=== PATIENT | female | born 1950 | race Caucasian/White ===

== ENCOUNTER 2024-09-05 17:00 | Emergency (ER) | payer MEDICARE, BC, SELFPAY ==
[2024-09-05 17:01] VITALS: BMI 31.6
[2024-09-05 17:22] VITALS: BP 168/82; PULSE 82; RESP 18; TEMP 36.9; O2SAT 95
--- NOTE | 2024-09-05 17:39 | PD.EDANIML ---
ED Animal Bite RME/HPI General Chief Complaint: Animal Bite Stated Complaint: CAT BITE 3 DAYS AGO Time Seen by Provider: 09/05/24 17:22 Arrival date/time: 09/05/24 17:00 73-year-old female presents emergency department today send that she was bitten by her cat 3 days ago patient reports redness to her right hand right arm today. Patient ports no fever nausea or vomiting Limitations: no limitations Related Data Home Medications ?Medication ?Instructions ?Recorded ?Confirmed fluoxetine 40 mg capsule 40 mg PO HS 08/28/17 12/02/17 hydrocodone 10 mg-acetaminophen 1 tab PO Q6H 12/01/17 12/01/17 325 mg tablet ([place]elle) Previous Rx's ?Medication ?Instructions ?Recorded amoxicillin 875 mg-potassium 1 tab PO BID 7 days #14 tabs 09/05/24 clavulanate 125 mg tablet ibuprofen 600 mg tablet 600 mg PO Q6H #30 tabs 09/05/24 Allergies Allergy/AdvReac Type Severity Reaction Status Date / Time No Known Allergies Allergy Verified 09/05/24 17:03 Review of Systems Review of Systems Systems Reviewed: All systems reviewed, normal except as documented Constitutional Constitutional: Reports system reviewed and no additional complaints, except as documented, Denies fever(s) and Denies headache(s) Eyes Eyes: Reports system reviewed and no additional complaints, except as documented and Denies blurry vision ENT Ears, Nose, Mouth, and Throat: Reports system reviewed and no additional complaints, except as documented, Denies headache(s), Denies nasal congestion and Denies nasal discharge Cardiovascular Cardiovascular: Reports system reviewed and no additional complaints, except as documented, Denies chest pain and Denies dyspnea Respiratory Respiratory: Reports system reviewed and no additional complaints, except as documented, Denies chest congestion, Denies cough and Denies dyspnea Gastrointestinal Gastrointestinal: Reports system reviewed and no additional complaints, except as documented and Denies abdominal pain Integumentary/Breasts Skin/Breast: Reports system reviewed and no additional complaints, except as documented, Denies rash and Reports wounds (Cat bite right arm erythema) Neurologic Neurologic: Reports system reviewed and no additional complaints, except as documented, Reports as per HPI and Denies headache(s) Past Medical History Past Medical History NEUROLOGIC: Negative Neurological Disorders or Seizures CARDIAC: Negative Cardiac Disorders or Congestive Heart Failure RESPIRATORY: Negative Chronic Obstructive Pulmonary Disease (COPD) GASTROINTESTINAL: Positive Gastrointestinal Disorders and Gall Bladder Disease (LAP 2000) GENITOURINARY: Negative Genitourinary Disorders or Renal Disease REPRODUCTIVE: Positive Previous Pregnancies (X1) MUSCULOSKELETAL: Positive Musculoskeletal Disorders, Arthritis, Carpal Tunnel Syndrome (RIGHT) and Fractures (RIGHT ANKLE NO SURG) ENDOCRINE: Negative Endocrine Disorders, Diabetes Mellitus Type 1 or Diabetes Mellitus Type 2 HEMATOLOGIC: Negative Blood Disorders PSYCHO/SOCIAL: Positive Depression (TAKES MED) and Anxiety OTHER HISTORY: Positive Hospitalization (HOSP DUE TO GALL BLADDER FLARE UP (OVERNIGHT) 1999), Autoimmune Disease, Shingles, Chicken Pox and Measles; Negative Blood Transfusions, Blood Transfusion Reaction or Anesthesia Reactions Family History FAMILY HISTORY: Positive Family Psychiatric Problems (BROTHER,MOTHER), Family Respiratory Disorders (MOTHER), Family Cardiac Disorders (MOTHER), Family Gastrointestinal Problems (FATHER) and Family Surgery (MOTHER,FATHER,BROTHER) Surgical History SURGICAL: Positive Tonsillectomy Social History SMOKING STATUS: Never smoker ED Exam General Limitations: Present no limitations General appearance: Present alert and in no apparent distress Head Head exam: Present atraumatic Eye Eye exam: Present normal appearance, PERRL and EOMI ENT ENT exam: Present normal exam, normal oropharynx and mucous membranes moist Neck Neck exam: Present normal inspection, full ROM and trachea midline Chest Chest inspection: Present normal inspection and symmetric chest wall rise Respiratory Respiratory exam: Present normal lung sounds bilaterally Cardiovascular Cardiovascular exam: Present regular rate, normal rhythm and normal heart sounds Abdominal Exam Abdominal exam: Present soft and normal bowel sounds Extremities Exam Extremities exam: Present normal inspection and full ROM Back Exam Back exam: Present normal inspection and full ROM Neurological Exam Neurological exam: Present alert, oriented X3 and CN II-XII intact Psychiatric Psychiatric exam: Present normal affect and normal mood Skin Skin exam: Present warm, dry and other (Right arm redness, warmth, cat bite) Course Quality Measures none Orders Category Date Time Status Ibuprofen Tab [Motrin Tab] Med 09/05/24 17:34 Discontinued 600 mg PO X1 ONE Lidocaine 1% 20 ml [Xylocaine 1% 20 ML] Med 09/05/24 17:34 Discontinued 2.1 ml INFL X1 ONE Tet,Diphth,Pertuss(Acell)-Tdap [Boostrix Vacc] Med 09/05/24 17:34 Discontinued 0.5 ml IMI .ONCE ONE cefTRIAXone [Rocephin] Med 09/05/24 17:34 Discontinued 1,000 mg IM X1 ONE Vital Signs Vital signs: Vital Signs Temperature 98.5 F 09/05/24 17:22 Pulse Rate 82 09/05/24 17:22 Respiratory Rate 18 09/05/24 17:22 Blood Pressure 168/82 H 09/05/24 17:22 Pulse Oximetry (%) 95 09/05/24 17:22 Oxygen Delivery Method Room Air 09/05/24 17:22 O2 saturation 95% room air within normal limits Animal Bite MDM Narrative MDM Narrative:: 73-year-old female presents emergency department today send that she was bitten by her cat 3 days ago patient reports redness to her right hand right arm today. Patient ports no fever nausea or vomiting On exam patient well-appearing patient does not appear toxic and no acute distress On exam patient has erythema right hand and right forearm I did give the patient the offer of lab work and possible admission Patient reports she would prefer to try a course of antibiotics and she will return in 24 hours for reevaluation Patient assures me she will return tomorrow for reevaluation Patient data External records reviewed:: [facility] previous records Clinical information provided by:: patient Social determinants that could affect healthcare access:: none Patient has the following chronic illnesses:: None How is presenting disease/condition affected by chronic disease/condition?: no chronic disease Evaluation data The following diagnostics were reviewed and interpreted by me:: other (specify) (N/A) Lab and/or radiology exams considered but not ordered:: Consider not ordered Interpretation Summary: N/A Medications / Prescriptions Medications or Prescriptions considered but not ordered:: Given Medication administrations:: Medication Administration History Discontinued Medications Ceftriaxone Sodium (Ceftriaxone Sod Inj 1,000 Mg Vial) 1,000 mg IM X1 ONE Stop: 09/05/24 17:35 Last Admin: 09/05/24 18:10 Dose: 1,000 mg Documented By: ROGER Diphtheria/Tetanus/Acell Pertussis (Diphth,Pertuss(Acell),Tet Vac 0.5 Ml Syr) 0.5 ml IMi .ONCE ONE Stop: 09/05/24 17:35 Last Admin: 09/05/24 18:11 Dose: 0.5 ml Documented By: ROGER Ibuprofen (Ibuprofen Tab 600 Mg Tablet) 600 mg PO X1 ONE Stop: 09/05/24 17:35 Last Admin: 09/05/24 18:10 Dose: 600 mg Documented By: ROGER Lidocaine HCl (Lidocaine Hcl 1% 20 Ml Vial) 2.1 ml INFL X1 ONE Stop: 09/05/24 17:35 Last Admin: 09/05/24 18:10 Dose: 2.1 ml Documented By: ROGER Given Consultations Consultation(s) initiated? (list below): No Diagnosis Differential diagnosis animal bite: bite by animal, cat bite and rabies contact Most likely diagnosis given after review of the tests above:: Cellulitis, cat bite Admission Indicated Admission indicated?: not indicated Admission Request Was there a request for admission?: No Disposition Plan Disposition Plan: Discharge Discharge Attestation Discharge Attestation: The patient and all family members were given an opportunity to ask questions and understood the discharge instructions. Discharge instructions specifically effects, indications for sooner follow up or return to the emergency department, and the expected course of current diagnosis. Patient condition: Stable Discharge Plan Plan Patient Disposition: HOME (Self Care) Disposition Comment: Stable Prescriptions/Referrals Prescriptions/Med Rec: New ibuprofen 600 mg tablet 600 mg PO Q6H Qty: 30 0RF amoxicillin-pot clavulanate 875-125 mg tablet 1 tab PO BID 7 Days Qty: 14 0RF No Action fluoxetine 40 mg capsule 40 mg PO HS Patient Comments: TAKE ONE CAPSULE BY MOUTH EVERY DAY hydrocodone-acetaminophen [P[place]elle] 10-325 mg Tablet 1 tab PO Q6H Problem List Clinical Impression: Cat bite of right hand Patient/Caregiver Discharge Instructions Education Materials: ED Cat Bite Additional Instructions: Please return in 24 hours for reevaluation for worsening symptoms return immediately Print Language: Kyrgyz Stand Alone Forms: Yari Award Info., Patient Portal Info Letter Vaccines Vaccines Given During Stay: TDaP PA/COIN ROLLING MACHINE OPERATOR Supervising Physician PA/COIN ROLLING MACHINE OPERATOR Supervising Physician: Dr Luo
[2024-09-05] MEDS: cefTRIAXone SOD INJ 1,000 MG VIAL 1000 MG IM (18:10)
[2024-09-05] MEDS: LIDOCAINE HCL 1% 20 ML VIAL 2.1 ML INFL (18:10)
[2024-09-05] MEDS: IBUPROFEN TAB 600 MG TABLET PO (18:10)
[2024-09-05] MEDS: DIPHTH,PERTUSS(ACELL),TET VAC 0.5 ML SYR IMi (18:11)
== END 2024-09-05 18:22 | disposition home or self-care (01) ==
LOC: SERX 18:38
PROVIDERS: Emergency Provider Emergency Medicine; PCP Family Medicine
DX: S61.451A Open bite of right hand, initial encounter (principal); Z23 Encounter for immunization; W55.01XA Bitten by cat, initial encounter
CPT/HCPCS: 90471; 90715; 96372; 99283; J0696; J3490; A9270

== ENCOUNTER 2025-02-11 12:30 | Emergency (ER) | payer MEDICARE, BC, SELFPAY ==
[2025-02-11 12:39] VITALS: BP 163/83; PULSE 87; RESP 19; TEMP 37.1; O2SAT 95; BMI 31.8
--- NOTE | 2025-02-11 12:55 | EDNOTE_ITS ---
ED Animal Bite RME/HPI General Chief Complaint: Animal Bite Stated Complaint: Cat bite right hand last night Time Seen by Provider: 02/11/25 12:47 Source: patient Arrival date/time: 02/11/25 12:30 This is a 74-year-old female who presents to the emergency department for evaluation of a cat bite to the right hand, which occurred approximately 1 day ago. The patient reports developing redness to the dorsum of the right hand today. She denies fever, chills, nausea, or vomiting. On physical exam, there is mild erythema noted to the dorsum of the right hand. No drainage, fluctuance, or streaking noted at this time. Mode of arrival: ambulatory Limitations: no limitations Related Data Home Medications ?Medication ?Instructions ?Recorded ?Confirmed fluoxetine 40 mg capsule 40 mg PO HS 08/28/17 8 hydrocodone 10 mg-acetaminophen 1 tab PO Q6H 12/01/17 12/01/17 325 mg tablet ([place]) Previous Rx's ?Medication ?Instructions ?Recorded ibuprofen 600 mg tablet 600 mg PO Q6H #30 tabs 09/05 amoxicillin 875 mg-potassium 1 tab PO BID 7 days #14 t abs 02/11/25 clavulanate 125 mg tablet Allergies Allergy/AdvReac Type Severity Reaction Status Date / Time No Known Allergies Allergy Verified 02/11/25 12:35 Review of Systems Review of Systems Systems Reviewed: All systems reviewed, normal except as documented Constitutional Constitutional: Reports system reviewed and no additional complaints, except as documented, Denies fever(s) and Denies headache(s) Eyes Eyes: Reports system reviewed and no additional complaints, except as documented and Denies blurry vision ENT Ears, Nose, Mouth, and Throat: Reports system reviewed and no additional complaints, except as documented, Denies headache(s), Denies nasal congestion and Denies nasal discharge Cardiovascular Cardiovascular: Reports system reviewed and no additional complaints, except as documented, Denies chest pain and Denies dyspnea Respiratory Respiratory: Reports system reviewed and no additional complaints, except as documented, Denies chest congestion, Denies cough and Denies dyspnea Gastrointestinal Gastrointestinal: Reports system reviewed and no additional complaints, except as documented and Denies abdominal pain Integumentary/Breasts Skin/Breast: Reports system reviewed and no additional complaints, except as documented, Denies rash and Reports wounds (Cat bite right arm erythema) Neurologic Neurologic: Reports system reviewed and no additional complaints, except as documented, Reports as per HPI and Denies headache(s) ED Exam General Limitations: Present no limitations General appearance: Present alert and in no apparent distress Head Head exam: Present atraumatic Eye Eye exam: Present normal appearance, PERRL and EOMI ENT ENT exam: Present normal exam, normal oropharynx and mucous membranes moist Neck Neck exam: Present normal inspection, full ROM and trachea midline Chest Chest inspection: Present normal inspection and symmetric chest wall rise Respiratory Respiratory exam: Present normal lung sounds bilaterally Cardiovascular Cardiovascular exam: Present regular rate, normal rhythm and normal heart sounds Abdominal Exam Abdominal exam: Present soft and normal bowel sounds Extremities Exam Extremities exam: Present normal inspection and full ROM Back Exam Back exam: Present normal inspection and full ROM Neurological Exam Neurological exam: Present alert, oriented X3 and CN II-XII intact Psychiatric Psychiatric exam: Present normal affect and normal mood Skin Skin exam: Present warm, dry and other (Right arm redness, warmth, cat bite) Course Quality Measures none Orders Category Date Time Status cefTRIAXone [Rocephin] 1,000 mg Med 02/11/25 12:48 Discontinued Lidocaine 1% 20 ml [Xylocaine 1% 20 ML] 2.1 ml IM X1 Vital Signs Vital signs: Vital Signs Temperature 98.7 F 02/11/25 12:39 Pulse Rate 87 02/11/25 12:39 Respiratory Rate 19 02/11/25 12:39 Blood Pressure 163/83 H 02/11/25 12:39 Pulse Oximetry (%) 95 02/11/25 12:39 Oxygen Delivery Method Room Air 02/11/25 12:39 Animal Bite MDM Narrative MDM Narrative:: The patient presents with a cat bite to the hand, now with early signs of local soft tissue infection but no systemic symptoms. There is no evidence of abscess or lymphangitic spread at this time. 1 g of Rocephin will be given here in the ER plus discharged with prophylactic antibiotics Tetanus status was reviewed however was updated on the last visit. Patient data External records reviewed:: [facility] previous records Clinical information provided by:: patient Social determinants that could affect healthcare access:: none Patient has the following chronic illnesses:: None How is presenting disease/condition affected by chronic disease/condition?: no chronic disease Evaluation data The following diagnostics were reviewed and interpreted by me:: other (specify) Lab and/or radiology exams considered but not ordered:: None Interpretation Summary: Not applicable Medications / Prescriptions Medications or Prescriptions considered but not ordered:: no Medication administrations:: Medication Administration History Discontinued Medications Ceftriaxone Sodium 1,000 mg/ (Lidocaine HCl 2.1 ml) 0 mg IM X1 ONE Stop: 02/11/25 12:49 All medications administered and effective Consultations Consultation(s) initiated? (list below): No Diagnosis Differential diagnosis animal bite: bite by animal, cat bite and dog bite Most likely diagnosis given after review of the tests above:: Cat bite-right hand cellulitis Admission Indicated Admission indicated?: not indicated Admission Request Was there a request for admission?: No Disposition Plan Disposition Plan: Discharge Discharge Attestation Discharge Attestation: The patient and all family members were given an opportunity to ask questions and understood the discharge instructions. Discharge instructions specifically effects, indications for sooner follow up or return to the emergency department, and the expected course of current diagnosis. Patient condition: Stable Discharge Plan Plan Patient Disposition: HOME (Self Care) Prescriptions/Referrals Prescriptions/Med Rec: New amoxicillin-pot clavulanate 875-125 mg tablet 1 tab PO BID 7 Days Qty: 14 0RF No Action fluoxetine 40 mg capsule 40 mg PO HS Patient Comments: TAKE ONE CAPSULE BY MOUTH EVERY DAY hydrocodone-acetaminophen [[place]] 10-325 mg Tablet 1 tab PO Q6H ibuprofen 600 mg tablet 600 mg PO Q6H Qty: 30 0RF Problem List Clinical Impression: Cat bite Patient/Caregiver Discharge Instructions Discharge Activity: activity as tolerated Education Materials: ED Cat Bite Additional Instructions: - Please start antibiotic as directed. Return to the emergency department for any worsening symptoms or change in condition. Print Language: Fijian Stand Alone Forms: Yari Award Info., Patient Portal Info Letter PA/FINANCIAL FOUNDATIONS REPRESENTATIVE Supervising Physician PA/FINANCIAL FOUNDATIONS REPRESENTATIVE Supervising Physician: Dr skinner
[2025-02-11] MEDS: cefTRIAXone 1,000 MG, LIDOCAINE 1% 20 ML 2.1 ML IM (13:08)
== END 2025-02-11 13:11 | disposition home or self-care (01) ==
PROVIDERS: Emergency Provider Family Medicine
DX: S61.451A Open bite of right hand, initial encounter (principal); L03.113 Cellulitis of right upper limb; W55.01XA Bitten by cat, initial encounter
CPT/HCPCS: 96372; 99283; J0696; J3490